=== PATIENT | female | born 1955 | race Caucasian/White ===

== ENCOUNTER 2022-10-24 10:00 | Emergency (ER) | payer MEDICARE, BC, SELFPAY ==
--- NOTE | 2022-10-24 10:08 | ED.EYEPROB ---
HPI - Eye Problem General Chief complaint: Eye Problems Stated complaint: Eye Problem Source: patient and RN notes reviewed History of Present Illness HPI Narrative: 67 yo F presents to urgent care with complaints of bilateral eye drainage and irritation. Pt states this started on Sunday when she started to stay at her son's house. Pt states her son went on vacation and she was staying there to watch his dogs. Pt denies any past hx of dog allergy but does report she laid on his couch and his dogs are very hairy. Pt reports some tenderness to her right eyelid. Pt denies any visual disturbance. Pt states she does wear contacts but not currently due to her irritation. Pt denies any fevers, chills, or EOM pain. Denies any matting or crustiness from eyes. Related Data Home Medications Medication Instructions Recorded Confirmed atorvastatin 40 mg tablet 40 mg PO DAILY 10/24/22 10/24/22 duloxetine 30 mg capsule,delayed 30 mg PO DAILY 10/24/22 10/24/22 release pioglitazone 45 mg tablet 45 mg PO DAILY 10/24/22 10/24/22 Allergies Allergy/AdvReac Type Severity Reaction Status Date / Time No Known Allergies Allergy Mild Unverified 10/24/22 10:13 Review of Systems Review of Systems: CONSTITUTIONAL: Denies fever, chills, or sweats. EYES: Bilateral eye clear drainage and irritated, more so on right eye. ENT: Denies otalgia and sore throat CARDIOVASCULAR: Denies chest pain, palpitations, or edema. RESPIRATORY: Denies cough or dyspnea. GASTROINTESTINAL: Denies abdominal pain, nausea, vomiting, or diarrhea. GENITOURINARY: Denies dysuria or hematuria. SKIN: Denies rash or itching. MUSCULOSKELETAL: Denies back pain, joint pain, or myalgia. NEUROLOGIC: Denies headache, numbness, or weakness. Pertinent positives per HPI. [facility] Family History Family History (Updated 02/16/16 @ 10:11 by DOCTOR UNKNOWN) Father Family history of heart disease in male family member before age 55 Patient's father is in good health, Onset Age: 61 Social History Social History Smoking status: Heavy tobacco smoker Alcohol intake: never Comments At the time of my signature, I reviewed and agree with the nursing past medical, surgical, social, and family history. There is no relevant family history pertinent to the patient complaint. Exam Narrative: GENERAL: This is a well-nourished, well-developed patient, in no apparent distress. HEAD: normocephalic, atraumatic. EYES: Bilateral eyes have clear drainage and frequent tears. Right sclera is noted to be erythremic. Right upper lid and lower orbit noted to be slightly erythemic and upper lid tender to touch. Left sclera mildly erythremic. Right lower conjunctiva injected. EARS: External ears normal, auditory canals clear and without drainage, TMs normal without perforation. Hearing grossly intact. NOSE: External nose normal with no obvious nasal discharge, nares without redness, no rhinorrhea. THROAT: Mucous membranes moist, posterior pharynx clear. NECK: Neck supple, non-tender without lymphadenopathy, masses or thyromegaly. CARDIOVASCULAR: Regular rate and rhythm without murmurs, gallops, or rubs. RESPIRATORY: Clear to auscultation. Breath sounds equal bilaterally. No wheezes, rales, or rhonchi. SKIN: warm, intact with no suspicious lesions or rash, good texture and turgor. NEURO: awake, alert, and oriented to person, place and time. There were no obvious focal neurologic abnormalities. Course Course Level of Care: Express Care Visit Vital Signs Vital signs: Vital Signs Temperature 98.3 F 10/24/22 10:09 Pulse Rate 81 10/24/22 10:09 Respiratory Rate 16 10/24/22 10:09 Blood Pressure 154/63 H 10/24/22 10:09 Pulse Oximetry 98 10/24/22 10:09 Oxygen Delivery Room Air 10/24/22 10:09 Temperature 98.3 F 10/24/22 10:14 Pulse Rate 81 10/24/22 10:14 Respiratory Rate 16 10/24/22 10:14 Blood Pressure 154/63 H 10/24/22 10:14 Pulse Oximetr
[2022-10-24 10:09] VITALS: BP 154/63; PULSE 81; RESP 16; TEMP 36.8; O2SAT 98
[2022-10-24 10:14] VITALS: BP 154/63; PULSE 81; RESP 16; TEMP 36.8; O2SAT 98
== END 2022-10-24 10:30 | disposition home or self-care (01) ==
PROVIDERS: Emergency Provider Nurse Practitioner Family; PCP Internal Medicine
DX: H10.9 Unspecified conjunctivitis (principal); F17.200 Nicotine dependence, unspecified, uncomplicated; E78.00 Pure hypercholesterolemia, unspecified; E11.9 Type 2 diabetes mellitus without complications
CPT/HCPCS: 99203; G0463

== ENCOUNTER 2024-06-07 18:02 | Emergency (ER) | payer MEDICARE, BC, SELFPAY ==
[2024-06-07] VITALS (13 sets, daily range): BP systolic 183–193; BP diastolic 72–97; PULSE 64–88; RESP 12–19; TEMP 36.3; O2SAT 98–100
--- NOTE | ~2024-06-07 | CT_ITS ---
EXAMINATION: CT brain wo con DATE: 06/07/2024 18:28 INDICATION: AMS . TECHNIQUE: Computed tomography (CT) of the head was performed without intravenous contrast. The mA wa s adjusted according to patient size. Iterative reconstruction technique was employed. The dose-lengt h product was 605.33 mGy-cm. COMPARISON: None. FINDINGS: No acute intracranial hemorrhage or extra-axial fluid collection. No hydrocephalus, mass, or herniation. No acute ischemic infarct. Unremarkable dural venous sinus attenuation. No acute osseous abnormality. Bilateral mastoid fluid, the remaining aerated spaces are clear. Mild atrophy and chronic white matter change. Atherosclerotic intracranial calcification. 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 IMPRESSION: No acute intracranial process. Reviewed, dictated and finalized at location [employer]. [employer]
--- NOTE | ~2024-06-07 | XR_ITS ---
EXAMINATION: XR chest 2V Exam Date/Time: 06/07/2024 19:00 ORCHARD SPRAYER HISTORY: syncope Comparison: 10/13/2005. RESULT: Lines, tubes, and devices: None. Lungs and pleura: Clear. Cardiomediastinal silhouette: Stable. Other: No acute osseous or upper abdominal finding. IMPRESSION: No acute cardiopulmonary process. Reviewed, dictated and finalized at location K. ARD SPRAYER
--- NOTE | 2024-06-07 18:18 | ECG_ITS ---
Test Date: 2024-06-07 18:35:58 Measurements Intervals [place] Rate: 63 P: 29 AR: 160 QRS: 52 QRSD: 102 T: 77 QT: 439 QTc: 452 Interpretive Statements SINUS RHYTHM BORDERLINE T WAVE ABNORMALITY- HIGH LATERAL LEADS BASELINE ARTIFACT- I, III, AVR, AVL BORDERLINE ECG No previous ECG available for comparison Electronically Signed On 06-08-2024 08:19:38 CASHIER SUPERVISOR by Vinny Alvarado D.O.
[2024-06-07 18:21] LABS: Glucose Point of Care 199 mg/dl (65-105)
[2024-06-07 19:05] LABS: Basophils Absolute Auto 0.1 K/mm3 (0.0-0.1); Basophils Percent Auto 0.8 % (0.2-1.2); Eosinophils Absolute Auto 0.2 K/mm3 (0-0.3); Eosinophils Percent Auto 2.4 % (0-4.4); Hematocrit 33.9 % (37.0-47.0); Hemoglobin 11.5 g/dL (12.0-15.0); Immature Granulocyte Absolute 0.06 K/mm3 (0.00-0.031); Immature Granulocyte Percent A 0.7 % (0-0.5); Lymphocytes Absolute Auto 2.19 K/mm3 (0.9-3.2); Lymphocytes Percent Auto 25.1 % (18.3-44.2); Mean Corpuscular HGB Conc 33.9 g/dl (32-36); Mean Corpuscular Hemoglobin 30.7 pg (26-34); Mean Corpuscular Volume 90.4 fl (80-100); Mean Platelet Volume 10.4 fl (7.4-10.4); Monocytes Absolute Auto 0.5 K/mm3 (0.1-0.6); Monocytes Percent Auto 5.6 % (2.6-8.5); Neutrophils Absolute Auto 5.7 K/mm3 (1.3-6.7); Neutrophils Percent Auto 65.4 % (45.5-73.1); Platelet Count Result 333 k/mm3 (150-375); Red Blood Count 3.75 M/mm3 (4.2-5.4); Red Cell Distribution Width 12.4 % (11.5-14.5); White Blood Count 8.7 K/mm3 (4.5-10.0)
[2024-06-07 19:13] LABS: INR 0.9
[2024-06-07 19:14] LABS: Partial Thromboplastin Time 25.5 Seconds (22.3-36.8)
[2024-06-07 19:23] LABS: Alanine Aminotransferase 19 U/L (6-35); Albumin Level 2.7 g/dL (3.5-5.1); Alkaline Phosphatase 85 U/L (38-126); Anion Gap 6 mmol/L (4-12); Aspartate Amino Transferase 22 U/L (14-36); Bilirubin,Total 0.4 mg/dL (0.2-1.3); Blood Urea Nitrogen 39 mg/dL (7-17); Calcium 8.7 mg/dL (8.4-10.2); Carbon Dioxide 18 mmol/L (22-30); Chloride 113 mmol/L (98-107); Estimated CRCL calculation 22 ml/min; Estimated Glomerular Filt Rate 23; Glucose 191 mg/dL (65-110); Potassium 3.9 mmol/L (3.4-5.0); Sodium 137 mmol/L (137-145)
[2024-06-07 19:25] LABS: Influenza A QL RT-PCR Negative (Negative); Influenza B QL RT-PCR Negative (Negative); RSV RNA, RT-PCR Negative (Negative); SARS-CoV-2 RNA PCR Negative (Negative)
[2024-06-07 19:33] LABS: Troponin I < 0.012 ng/mL (0.000-0.034)
[2024-06-07 19:34] LABS: Add Urine Microscopic? YES; Appearance Urine Cloudy (Clear); Bacteria Urine None Seen /hpf; Bilirubin Urine Negative (Negative); Blood Urine 1+ (Negative); Color Urine Yellow (Yellow); Glucose Urine UA 2+ mg/dL (Negative); Hyaline Casts Urine Present /lpf; Ketones Urine Trace mg/dL (Negative); Leukocyte Esterase Ur Negative LEU/UL (Negative); Nitrate Urine Negative (Negative); Non Pathogenic Casts >20; Protein Urine 4+ mg/dL (Negative); Specific Grav Ur 1.032 (1.001-1.035); Squamous Epithelial Cell Urine Few /hpf (Few); Urobilinogen Urine 0.2 mg/dL (<2.0); pH Urine 5.5 (5.0-9.0)
--- OUTSIDE RECORDS SUMMARY | 2024-06-07 19:39 | XMS_ITS | Clinical Summary ---
Author Organization [facility] Medical Office Building [address] Address [address] [place] [address] Care Team Providers Care Reading Tutor Name Role Phone Kiran Kay MD Primary Care Provider + Allergies No known active allergies Medications docusate sodium (Colace) 100 mg capsuleIndicati ons:constipatio n Take 1 capsule (100 mg total) by mouth 2 (two) times a day for 14 days 28 capsule 09/21/2023 Active Active Problems Problem Noted Date Diagnosed Date S/P laparoscopic cholecystectomy 10/02/2023 Resolved Problems Problem Noted Date Diagnosed Date Resolved Date Cholecystitis with cholelithiasis 09/13/2023 10/02/2023 Surgical History Surgery Date Site/Laterality Comments SHOULDER SURGERY 1994 Left shoulder surgery OTHER SURGICAL HISTORY 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: LESI, PT OTHER SURGICAL HISTORY Hyperlipidemia: statin therapy OTHER SURGICAL HISTORY Diabetes: oral medication OTHER SURGICAL HISTORY Depression: SSRIs OTHER SURGICAL HISTORY 2006 Dysfunctional uterine bleeding (DUB): endometrial ablation NOS OTHER SURGICAL HISTORY 2002 Vocal cord polyps: throat surgery OTHER SURGICAL HISTORY 1998 tilted uterus OTHER SURGICAL HISTORY Chronic low back pain: narcotic pain medication OTHER SURGICAL HISTORY Vitamin B12 deficiency: B12 injections OTHER SURGICAL HISTORY Colonic polyps: colonoscopy every 4-5 years CHOLECYSTECTOMY 09/21/2023 W/ cholangiography Medical History Medical History Date Comments Pleurisy 1994 Pleurisy Hx Other Medical foot problems Hx Other Medical 1998 Degenerative di sc disease & bulging disk of lumbar Hyperlipidemia Hyperlipidemia Diabetes mellitus (HCC) Diabetes Depression Depression Hx Other Medical Dysfunctional u terine bleeding (DUB) Hx Other Medical Vocal cord poly ps Hx Other Medical Chronic low arie k pain Hx Other Medical Vitamin B12 def iciency Hx Other Medical Tobaccoism Hx Other Medical Colonic polyps Pleurisy 1996 pleurisy Hx Other Medical 1997 Dengerative dis c disease Hx Other Medical 2008 B12- deficiency Hx Other Medical 1994 Shoulder surger y Hx Other Medical 1998 Tilted uterus Hx Other Medical 1998 Throat surgery Cholecystitis with cholelithiasis 09/13/2023 Family History Medical History Relation Name Comments Heart disease Brother Heart disease; Hypertension Brother Hypertension; Stroke Brother Stroke; Coronary artery disease Father 2 Jose nary artery disease; Heart disease Father 2 Heart disease; Cause of : Heart disease Hypertension Father 2 Hypertension; Hypertension Mother Hypertension; Stroke Mother Stroke; Relation Name Status Comments Brother Father 1 (Age 61) Father 2 Mother Social History Tobacco Use Types Packs/Day Years Used Date Smoking Tobacco: Every Day Cigarettes Smokeless Tobacco: Never Tobacco Cessation:Ready to Q uit: Not Asked; Counseling Given: Not Answered Alcohol Use Standard Drinks/Week Comments No 0 (1 standard drink = 0.6 oz pur e alcohol) AUDIT-C Answer Date Recorded Q1: How often do you have a drink containing alcohol? Never 09/21/2023 Q2: How many drinks containi ng alcohol do you have on a typical day when you are drinking? Patient does not drink Frequency of Binge Drinking Not on file 09/04 Personal Safety Answer Date Recorded Have you ever been in or are you currently in a harmful physical or emotional relationship or is someone making you feel afraid or unsafe? 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 Gender Identity Not on file Sexual Orientation Not on file Obstetrics History Last Filed Vital Signs Vital Sign Reading Time Taken Comments Blood Pressure 146/85 10/02/2023 11:08 AM CDT Pulse 68 10/02/2023 11:08 AM CDT Temperature 36.3 ??C (97.3 ??F) 10/02/2023 11:08 AM C DT Respiratory Rate 18 09/21/2023 2:58 PM CDT Oxygen Saturation 97% 10/02/2023 11:08 AM CDT Inhaled Oxygen Concentration - - Weight 81.8 kg (180 lb 4.8 oz) 10/02/2023 11:08 AM CDT Height 170.2 cm (5' 7 ) 10/02/2023 11:08 AM CDT Body Mass Index 28.24 10/02/2023 11:08 AM CDT Plan of Treatment Health Maintenance Due Date Last Done Comments Colon Cancer Screening-Colonoscopy 1957 Depression Screening 1957 Hepatitis C Screening 1957 Osteoporosis Screening-Bone Density Scan 1957 DTaP/Tdap/Td Vaccine (1 - Tdap) 1968 Hepatitis B Screening 1975 Zoster Vaccine (1 of 2) 2007 Breast Cancer Screening-Mammogram 09/08/2014 014, 08/19/2012 Well Visit 65+ 2022 Pneumococcal vaccine 65+ (2 of 2 - PCV) 07/19/2022 07/19/2021, 11/13/2019 Covid-19 Vaccine ( season) 2024 05/30/2021, 08/06/2020, 07/18/2020 Influenza Vaccine (#1) 2024 Fall Risk Assessment 09/20/2024 09/21/2023 Procedures Procedure Name Priority Date/Time Associated Diagnosis Comments DIGITAL MAMMOGRAPHY Routine 09/08/2013 1 :09 PM CDT from Last 3 Months or Most Recently Relevant to Health Maintenance Results * DIGITAL MAMMOGRAPHY (09/08/2013 1:09 PM CDT) Anatomical Region Laterality Modality Breast Mammography 09/08/2013 1:09 PM CDT Narrative 09/08/2013 5:14 PM CDT Acc#: ??[id number] [facility] [id number] - Screening Mamm BI DATE OF EXAM: ??May ??5 2013 ??1:09PM DIAGNOSIS: ??SCREEN MAMMOGRAPHY NEC CLINICAL HISTORY: ??SCREENING RESULT: ?\ DIGITAL SCREENING MAMMOGRAM WITH CAD A digital mammographic study was performed with CAD. TECHNIQUE: ??Two view examination of each breast was obtained and compared with previous examinations of 08/19/2012 and 03/15/2011. ??CAD is utilized. FINDINGS: ??Involution since 2010. ??Essentially fatty parenchyma. ??No dominant masses, no malignant microcalcifications. IMPRESSION: ?\ CATEGORY 1-NEGATIVE MAMMOGRAM IMPRESSION OF OVERALL ASSESSMENT CATEGORY 1-NEGATIVE TECHNOLOGIST: ?? JESSICA MUNGUIATECHNDAO MEDICAL IMAGING PATIENT ACCESS: ??PW2 TRANSCRIBE DATE/TIME: ??May ??5 2013 ??3:54P RADIOLOGIST: ??AMRITA DE ANDA M.D. ??READ ON: ??May ??5 2013 ??1:17P ORDERING DR: JOSE ANTONIO DAILEY M.D. THIS DOCUMENT HAS BEEN ELECTRONICALLY SIGNED BY: ??AMRITA DE ANDA M.D. ??ON: ??May ??5 2013 ??5:14P Requesting Fax: ??[phone] Procedure Note Provider, MD Wild - 08/29/2016 Acc#: [id number] [facility] 0017 - Screening Mamm BI DATE OF EXAM: Sep 08 2013 1:09PM DIAGNOSIS: SCREEN MAMMOGRAPHY NEC CLINICAL HISTORY: SCREENING RESULT: \ DIGITAL SCREENING MAMMOGRAM WITH CAD A digital mammographic study was performed with CAD. TECHNIQUE: Two view examination of each breast was obtained and compared with previous examinations of 08/19/2012 and 03/15/2011. CAD isutilized. FINDINGS: Involution since 2010. Essentially fatty parenchyma. No dominant masses, no malignant microcalcifications. IMPRESSION: \ CATEGORY 1-NEGATIVE MAMMOGRAM IMPRESSION OF OVERALL ASSESSMENT CATEGORY 1-NEGATIVE TECHNOLOGIST: JESSICA MUNGUIATECHNOLOGIST MEDICAL IMAGING PATIENT ACCESS: PW2 TRANSCRIBE DATE/TIME: Sep 08 2013 3:54P RADIOLOGIST: AMRITA DE ANDA M.D. READ ON: Sep 08 2013 1:17P ORDERING DR: JOSE ANTONIO DAILEY M.D. THIS DOCUMENT HAS BEEN ELECTRONICALLY SIGNED BY: AMRITA DE ANDA M.D. ON: Sep 08 2013 5:14P Requesting Historical Provider MD [facility] MAMMO PROCEDURES Paz l Result from Last 3 Months or Most Recently Relevant to Health Maintenance Insurance MEDICARE BLUE ACCESS OOS BLUE ACCESS OOS MEDICARE MEDICARE Care Teams Reading Tutor Relationship Specialty Start Date End Date Kiran Kay MD [id number] [id number] PCP - General 09/30/21
--- OUTSIDE RECORDS SUMMARY | 2024-06-07 19:39 | XMS_ITS | Clinical Summary ---
Author Organization [facility] Address [address] [address] Phone Care Team Providers Care Scientific Director Name Role Phone Unavailable Primary Care Provider Unavailabl e Allergies No known active allergies Medications DULoxetine HCl (CYMBALTA PO) Active Hydrocodone-Oscar taminophen (VICODIN PO) Active HYDROcodone-oscar taminophen (NORCO) 7.5-325 MG TabletIndicatio ns:Pain Take 1 Tab by mouth every 8 hours as needed for Moderate or more severe pain. Active DULoxetine (CYMBALTA) [address] Particles Take 1 Cap by mouth daily. 30 Cap 0 Active SITagliptin (JANUVIA) 100 MG TabletIndicatio ns:Type 2 Diabetes Mellitus Take 1 Tab by mouth daily. Indications: Type 2 Diabetes 90 Tab 3 0 Active Additional Information Patient not taking.Reported on 10/17/2021 metFORMIN (GLUCOPHAGE) 1000 MG TabletIndicatio ns:Type 2 diabetes mellitus without complication, without long-term current use of insulin (HCC) Take 1 Tab by mouth 2 times daily (with meals). 180 Tab 3 0 Active Additional Information Patient not taking.Reported on 10/17/2021 atorvastatin (LIPITOR) 40 MG TabletIndicatio ns:Hyperlipidem ia Take 1 Tab by mouth daily. Indications: High Amount of Fats in the Blood 90 Tab 3 0 Active pioglitazone (ACTOS) 45 MG Tablet Take 1 Tab by mouth daily. 90 Tab 3 0 Active Rybelsus 7 MG Tablet 2 Active gabapentin (NEURONTIN) 300 MG Capsule TAKE 1 CAPSULE BY MOUTH TWICE DAILY 2 Active Active Problems Problem Noted Date Diagnosed Date Centrilobular emphysema 10/17/2021 Tobacco use disorder 10/17/2021 Pulmonary HTN 10/17/2021 Lung nodule, multiple 10/17/2021 Chronic pain syndrome 07/19/2018 Dyslipidemia 07/19/2018 Stress incontinence in female 07/19/2018 DM2 (diabetes mellitus, type 2) High cholesterol Depression Immunizations Immunization Administration Dates Next Due Pneumococcal Vaccine Adult - 23 Valent 2,11/13/2019 Family History Medical History Relation Name Comments Aneurysm Brother 1 Brain Stroke Brother 1 High Cholesterol Brother 2 Hypertension Brother 2 Skin Cancer Brother 3 Hypertension Brother 4 Heart Attack Brother 5 Hypertension Brother 5 Heart Attack Father Chronic Obstructive Pulmonary Disease Mother Emphysema Mother Hypertension Mother High Cholesterol Sister 1 Hypertension Sister 1 Hypertension Sister 2 Hypotension Sister 2 No Known Problems Sister 3 Chronic Obstructive Pulmonary Disease Sister 4 Relation Name Status Comments Brother 1 Alive Brother 2 Alive Brother 3 Alive Brother 4 Alive Brother 5 Alive Father Mother Sister 1 Alive Sister 2 Alive Sister 3 Alive Sister 4 Social History Tobacco Use Types Packs/Day Years Used Date Smoking Tobacco: Former Smokeless Tobacco: Never Tobacco Cessation:Ready to Q uit: No; Counseling Given: Yes Alcohol Use Standard Drinks/Week Comments Never 0 (1 standard drink = 0.6 oz pur e alcohol) AUDIT-C Answer Date Recorded Frequency of Alcohol Consumption Never 07/19/2018 Average Number of Drinks Not on file 019 Frequency of Binge Drinking Not on file 07/05 PHQ-2 Answer Date Recorded Total Score - Questions 1-9 8 01/2020 Sexually Active Control Partners Comments Yes Surgical Male Comments No Sex and Gender Information Value Date Recorded Sex Assigned at Not on file Legal Sex Female 8:06 PM CDT Gender Identity Not on file Sexual Orientation Not on file Occupation Industry Job Start Date Job End Date Retired Not on file Not on file Not on file Last Filed Vital Signs Vital Sign Reading Time Taken Comments Blood Pressure 136/70 10/17/2021 11:03 AM CDT Pulse 77 10/17/2021 11:03 AM CDT Temperature 36.6 ??C (97.9 ??F) 10/17/2021 1 1:03 AM CDT Respiratory Rate 16 10/17/2021 11:0 3 AM CDT Oxygen Saturation 96% 10/17/2021 11: 03 AM CDT Inhaled Oxygen Concentration - - Weight 92.5 kg (203 lb 14.4 oz) 022 11:03 AM CDT Height 169.5 cm (5' 6.75 ) 10/17/2021 1 1:03 AM CDT Body Mass Index 32.17 10/17/2021 11:03 AM CDT Plan of Treatment Health Maintenance Due Date Last Done Comments DEXA Bone Density 1957 Diabetes: Eye Exam 1957 Diabetes: Foot Exam 1957 Hepatitis C Virus (HCV) Screening 1957 TdaP Immunization 1957 Colonoscopy 2002 Colorectal Cancer Screening 2002 Cologuard 2007 Immunochemical Fecal Occult Blood 2007 Mammogram 2007 Zoster Immunization (1 of 2) 2007 Respiratory Syncytial Virus (RSV) Immunization (Adult) (1 - Risk 60-74 years 1-dose series) 2017 Diabetes: Hemoglobin A1c 05/14/2020 11/12/2019 Diabetes: Nephropathy Screening 11/11/2020 11/12/2019, 11/12/2019 Pneumococcal Immunization (5 0+ years) (2 of 2 - PCV) 07/19/2022 07/19/2021, 11/13/2019 Influenza Immunization (#1) 2024 SARS-COV-2 Immunization ( season) 2024 05/30/2021, 08/06/2020, 07/18/2020 Pneumococcal Immunization Combined Discontinued 07/19/2021, 11/13/2019 Hepatitis B Immunization Aged Out No longer eligible based on patient's age to complete this topic Meningococcal Immunization (ACWY) Aged Out No longer eligible based on patient's age to complete this topic Rotavirus Immunization Aged Out No lo nger eligible based on patient's age to complete this topic Procedures Procedure Name Priority Date/Time Associated Diagnosis Comments CMP (COMPREHENSIVE METABOLIC PANEL) Routine 11/12/2019 10:34 AM CDT Type 2 diabetes mellitus without complication, without long-term current use of insulin (HCC) HEMOGLOBIN A1C W/ ESTIMATED GLUCOSE Routine 11/12/2019 10:34 AM CDT Type 2 diabetes mellitus without complication, without long-term current use of insulin (HCC) from Last 3 Months or Most Recently Relevant to Health Maintenance Results * (ABNORMAL) HEMOGLOBIN A1C W/ ESTIMATED GLUCOSE (11/12/2019 10:34 AM CDT) HGB-A1C 12.0(H) 4.0 - 6.0 % 11/12/2019 1:40 PM CDT [facility] Est Average Glucose 297.7 mg/dL 11/12/2019 1:40 PM CDT [facility] Blood Venipuncture / Unknown 11/12/2019 10:34 AM CDT 11/12/2019 10:34 AM CDT Narrative [facility] - 11/12/2019 1:40 PM CDT HEMOGLOBIN A1C: DIABETIC PATIENTS: WELL-CONTROLLED: ?? 6.2 - 7.0 INTERMEDIATE WELL-CONTROLLED: ??7.0 - 9.0 POORLY-CONTROLLED: ??>9.0 us Ashley Dominguez MD CHEMISTRY ORDERABLES Final Result [facility] [address] [place] [address] * (ABNORMAL) CMP (COMPREHENSIVE METABOLIC PANEL) (11/12/2019 10:34 AM CDT) SODIUM 142 136 - 144 mmol/L 11/12/2019 12:59 PM CDT [facility] POTASSIUM 4.3 3.5 - 5.1 mmol/L 11/12/2019 12:59 PM CDT [facility] CHLORIDE 105 100 - 110 mmol/L 11/12/2019 12:59 PM CDT [facility] CO2, VENOUS 25 22 - 32 mmol/L 11/12/2019 12:59 PM CDT [facility] ANION GAP 16.3 8.0 - 20.0 mmol/L 11/12/2019 12:59 PM CDT [facility] GLUCOSE 329(H) 70 - 99 mg/dL 11/12/2019 12:59 PM CDT [facility] BUN 25(H) 8 - 23 mg/dL 11/12/2019 12:59 PM CDT [facility] CREATININE, BLOOD 1.06 0.60 - 1.10 mg/dL 11/12/2019 12:59 PM CDT [facility] BUN/CREATININE RATIO 24(H) 12 - 20 ratio 11/12/2019 12:59 PM CDT [facility] TOTAL PROTEIN 7.1 6.0 - 8.3 g/dL 11/12/2019 12:59 PM CDT [facility] ALBUMIN 4.4 3.5 - 5.2 g/dL 11/12/2019 12:59 PM T [facility] Comment: The colormetric methods used for the determination of Albumin may lead to falsely elevated test results in patients suffering from renal failure or insufficiency due to interference with other proteins. A/G RATIO 1.6 1.0 - 2.0 11/12/2019 12:59 PM CDT [facility] CALCIUM 9.4 8.9 - 10.3 mg/dL 11/12/2019 12:59 PM CDT [facility] T BILI 0.6 <=1.2 mg/dL 11/12/2019 12:59 PM CDT [facility] SGOT (AST) 11 <=32 U/L 11/12/2019 12:59 PM CDT [facility] SGPT (ALT) 13 <=33 U/L 11/12/2019 12:59 PM CDT [facility] ALKALINE PHOSPHATASE 104 35 - 105 U/L 11/12/2019 12:59 PM CDT [facility] GFR, EST. NONAFRICAN 53(L) >=60 11/12/2019 12:59 PM CDT [facility] GFR, EST. >60 >=60 020 12:59 PM CDT [facility] Comment: Creatinine Clearance is the preferred criteria for selecting drug dose adjustments in renally impaired patients. ??The GFR is provided as additional pertinent clinical information. GFR is reported in mL/min/1.73 sq m. Blood Venipuncture / Unknown 11/12/2019 10:34 AM CDT 11/12/2019 10:34 AM CDT Ashley Dominguez MD CHEMISTRY ORDERABLES Final Result [facility] [address] [place] [address] from Last 3 Months or Most Recently Relevant to Health Maintenance Insurance MEDICARE [facility]
--- OUTSIDE RECORDS SUMMARY | 2024-06-07 19:39 | XMS_ITS | Referral Summary ---
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 Gender Identity Not on file Sexual Orientation Not on file Last Filed Vital Signs [...] 10/02/2023 11:08 AM CDT Plan of Treatment Not on file Procedures Procedure Name Priority Date/Time Associated Diagnosis Comments DIGITAL MAMMOGRAPHY Routine 09/08/2013 1 :09 PM CDT from Last 3 Months or Most Recently Relevant to Health Maintenance Results * DIGITAL MAMMOGRAPHY (09/08/2013 1:09 PM CDT) Anatomical Region Laterality Modality Breast Mammography 09/08/2013 1:09 PM CDT Narrative 09/08/2013 5:14 PM CDT Acc#: ??[id number] [facility] 0017 - Screening Mamm BI DATE OF EXAM: ??May ??2013 ??1:09PM DIAGNOSIS: ??SCREEN MAMMOGRAPHY NEC CLINICAL HISTORY: [...] OVERALL ASSESSMENT CATEGORY 1-NEGATIVE TECHNOLOGIST: ?? 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 ??READ ON: ??May ??5 2013 ??1:17P ORDERING DR: JOSE ANTONIO DAILEY M.D. THIS DOCUMENT HAS BEEN ELECTRONICALLY SIGNED BY: ??AMRITA DE ANDA M.D. ??ON: ??May ??5 2013 ??5:14P Requesting Fax: ??[phone] Procedure Note Provider, Wild, - 08/29/2016 Acc#: [id number] [facility] 0017 - Screening Mamm BI DATE [...] IMPRESSION OF OVERALL ASSESSMENT CATEGORY 1-NEGATIVE TECHNOLOGIST: JESSCIA MUNGUIATECHNOLOGIST MEDICAL IMAGING SHELL MOLD BONDING MACHINE OPERATOR: PWPatricia TRANSCRIBE DATE/TIME: Sep 08 2013 3:54P RADIOLOGIST: AMRITA DE ANDA M.D. READ ON: Sep 08 2013 1:17P ORDERING DR: JOSE ANTONIO DAILEY M.D. THIS DOCUMENT HAS BEEN ELECTRONICALLY SIGNED BY: AMRITA DE ANDA M.D. ON: Sep 08 2013 5:14P Requesting Historical Provider IMG MAMMO PROCEDURES Paz l Result from Last 3 Months or Most Recently Relevant to Health Maintenance Insurance MEDICARE BLUE ACCESS OOS [place] ACCESS OOS MEDICARE MEDICARE Care Teams Edge Grinder Relationship Specialty Start Date End Date Kiran Kay MD [address] [address] PCP - General 09/30/21
--- OUTSIDE RECORDS SUMMARY | 2024-06-07 19:39 | XMS_ITS | Encounter Summary ---
Author Organization [facility] Address [address] [place] [address] Phone Care Team Providers Care General Education Instructor Name Role Phone Ashley Dominguez MD Primary Care Provider [phone] Kiran Kay MD Primary Care Provider [phone] Encounter Details Date Type Department Care Team (Late st Contact Info) Description 07/19/2021 Transcribe Orders [facility] Scheduling [address] [place] [id number] Kiran Kay MD [address] [address] Tobacco use (Primary Dx) Social History Tobacco Use Types Packs/Day Years Used Date Smoking Tobacco: Every Day Smokeless Tobacco: Never Alcohol Use Standard Drinks/Week Comments Never 0 [...] file Not on file Not on file documented as of this encounter Plan of Treatment Not on file documented as of this encounter Visit Diagnoses Diagnosis Tobacco use- Primary Tobacco use disorder documented in this encounter Additional Health Concerns Assessment Noted Time PHQ-9 Depression Total Score: 8 11/13/19 20 10:37 AM CDT documented as of this encounter Care Teams General Education Instructor Relationship Specialty Start Date End Date Ashley Dominguez MD [address] [place] [address] PCP - General Family Medicine 07/19/18 07/27/21 Kiran Kay MD [address] [place] [address] PCP - General Internal Medicine 07/28/21 09/12/22 documented as of this encounter
--- OUTSIDE RECORDS SUMMARY | 2024-06-07 19:40 | XMS_ITS ---
Care Plan - [facility] Created on: June 07, 2024 DANNY RAMÍREZ : 1955 Sex: Female Author Organization [facility] Address [address] [place] [address] Phone Care Team Providers Care Impress Associate Name Role Phone JIM Conway, DIONY Portillo Primary Care Provider
--- OUTSIDE RECORDS SUMMARY | 2024-06-07 19:40 | XMS_ITS ---
Author Organization [facility] Address [address] [place] [address] Phone Care Team Providers Care Fell Cutter Name Role Phone DIONY FERNANDEZ M.D. Primary Care Provider Plan of Treatment No Plan of Treatment Recorded Assessments Includes: Assessments for all patient encounters No Assessments Recorded Medical Equipment - Implanted Devices Includes: Current and historical Devices No Medical Equipment Recorded Medications Administered Includes: Administered Medications in patient's chart No Administered Medications Recorded Results Includes: Results from 06/07/2023 through 06/07/2024 No Results Recorded For Specified Dates History of Present Illness History of Present Illness not supported for this document type No History of Present Illness Recorded Social History No Social History Recorded - Smoking Status Unknown Medical History Includes: Medical History in patient's chart No Medical History Recorded Family History Includes: Family History in patient's chart No Family History Recorded Review of Systems Review of Systems not supported for this document type No Review of Systems Recorded Mental Status No Mental Status Recorded Functional Status No Functional Status Recorded Physical Exam Physical Exam not supported for this document type No Physical Exam Recorded Clinical Notes Includes: Signed Clinical Notes starting from 05/26/2022 No Clinical Notes Recorded
[2024-06-07] MEDS: SODIUM CHLORIDE 0.9% IV 1,000 ML 999 ML IV CONT (19:52)
--- NOTE | 2024-06-07 20:54 | ED.GENADULT ---
HPI - General Adult General Chief complaint: Syncope Stated complaint: Syncope Time Seen by Provider: 06/07/24 19:16 History of Present Illness HPI narrative: Patient is a 69-year-old female presents emergency department with chief complaint of near-syncope. Patient reports that she was at [facility] got lightheaded felt as though she was going to pass out the patient reports that she has had pressure in her ears for some time and reports that she has had a lot of wax in her ears as well the patient states that she has history of diabetes but has not been on medications Related Data Home Medications ?Medication ?Instructions ?Recorded ?Confirmed ?Last Taken ?Type atorvastatin 40 mg tablet 40 mg PO DAILY 10/24/22 10/24/22 Unknown History duloxetine 30 mg capsule,delayed 30 mg PO DAILY 10/24/22 10/24/22 Unknown History release pioglitazone 45 mg tablet 45 mg PO DAILY 10/24/22 10/24/22 Unknown History Allergies Allergy/AdvReac Type Severity Reaction Status Date / Time No Known Allergies Allergy Mild Unverified 10/24/22 10:13 Review of Systems Review of Systems: A 10 system review of systems was completed on the patient and is negative except for what is stated in the HPI. Nursing and ancillary documentation was reviewed. [facility] Family History Family History Father Family history of heart disease in male family member before age 55 Patient's father is in good health, Onset Age: 61 Social History Social History Smoking status: Heavy tobacco smoker Alcohol intake: never Exam Narrative: GENERAL: Well-appearing, well-nourished, and in no acute distress. HEAD: Normocephalic, atraumatic. EYES: PERRLA and EOMI. ENT: Nares clear, no rhinorrhea or epistaxis. Mucous membranes moist. Large amount of wax in bilateral ears NECK: Supple. CHEST: Clear to auscultation. No respiratory distress. HEART: Regular rate and rhythm. No murmur heard. Normal peripheral pulses. ABDOMEN: Soft, nontender, nondistended, normal active bowel sounds. EXTREMITIES: Normal range of motion. No edema. SKIN: Warm, dry, no rash. NEURO: No focal deficits. Alert and oriented x3. PSYCH: Normal mood and affect. Course Vital Signs Vital signs: Vital Signs Temperature 36.3 C L 06/07/24 18:18 Pulse Rate 70 06/07/24 18:18 Respiratory Rate 13 06/07/24 18:18 Blood Pressure 183/87 H 06/07/24 18:18 Pulse Oximetry 100 06/07/24 18:18 Temperature 36.3 C L 06/07/24 18:19 Pulse Rate 86 06/07/24 20:13 Respiratory Rate 12 06/07/24 18:19 Blood Pressure 187/93 H 06/07/24 20:13 Pulse Oximetry 100 06/07/24 18:19 Oxygen Delivery Room Air 06/07/24 18:19 Medical Decision Making MDM Narrative Medical decision making narrative: Differential diagnosis includes electrolyte abnormality, dehydration, hyperglycemia Patient did have a large amount of cerumen in her ears was causing significant issues with hearing this was irrigated CT head showed no acute abnormality electrolytes showed a elevated creatinine After receiving IV fluids and also the cerumen impaction cleared the patient is feeling much better and would like to trial outpatient therapy Vital Signs Vital Signs: Vital Signs Temperature 36.3 C L 06/07/24 18:18 Pulse Rate 70 06/07/24 18:18 Respiratory Rate 13 06/07/24 18:18 Blood Pressure 183/87 H 06/07/24 18:18 Pulse Oximetry 100 06/07/24 18:18 Temperature 36.3 C L 06/07/24 18:19 Pulse Rate 86 06/07/24 20:13 Respiratory Rate 12 06/07/24 18:19 Blood Pressure 187/93 H 06/07/24 20:13 Pulse Oximetry 100 06/07/24 18:19 Oxygen Delivery Room Air 06/07/24 18:19 Lab Data 06/07/24 18:54 06/07/24 18:54 Labs: Lab Results 06/07/24 06/07/24 06/07/24 Range/Units 18:19 18:42 18:43 WBC (4.5-10.0) K/mm3 RBC (4.2-5.4) M/mm3 Hgb (12.0-15.0) g/dL Hct (37.0-47.0) % MCV (80-100) fl MCH (26-34) pg MCHC (32-36) g/dl RDW (11.5-14.5) % Plt Count (150-375) k/mm3 MPV (7.4-10.4) fl Immature Gran % (Auto) (0-0.5) % Neut % (Auto) (45.5-73.1) % Lymph % (Auto) (18.3-44.2) % [place]assen % (Auto) (2.6-8.5) % Eos % (Auto) (0-4.4) % Baso % (Auto) (0.2-1.2) % Lymph # (Auto) (0.9-3.2) K/mm3 [place]assen # (Auto) (0.1-0.6) K/mm3 Eos # (Auto) (0-0.3) K/mm3 Baso # (Auto) (0.0-0.1) K/mm3 Abs Immat Gran (auto) (0.00-0.031) K/mm3 Absolute Neuts (auto) (1.3-6.7) K/mm3 Absolute Nucleated RBC (0.0-0.012) K/mm3 Nucleated RBC % (0.0-0.2) % PT (11.1-14.7) Seconds INR APTT (22.3-36.8) Seconds Sodium (137-145) mmol/L Potassium (3.4-5.0) mmol/L Chloride (98-107) mmol/L Carbon Dioxide (22-30) mmol/L Anion Gap (4-12) mmol/L BUN (7-17) mg/dL Creatinine (0.7-1.0) mg/dL Estim Creat Clear Calc ml/min Estimated GFR (59 - ) Glucose (65-110) mg/dL POC Capillary Glucose 199 H (65-105) mg/dl Calcium (8.4-10.2) mg/dL Total Bilirubin (0.2-1.3) mg/dL AST (14-36) U/L ALT (6-35) U/L Alkaline Phosphatase (38-126) U/L Troponin I (0.000-0.034) ng/mL Total Protein (6.3-8.2) g/dL Albumin (3.5-5.1) g/dL Urine Color Yellow (Yellow) Urine Appearance Cloudy H (Clear) Urine pH 5.5 (5.0-9.0) Ur Specific [place] 1.032 (1.001-1.035) Urine Protein 4+ H (Negative) mg/dL Urine Glucose (UA) 2+ H (Negative) mg/dL Urine Ketones Trace H (Negative) mg/dL Ur Blood (Man) 1+ H (Negative) Urine Nitrate Negative (Negative) Urine Bilirubin Negative (Negative) Urine Urobilinogen 0.2 (<2.0) mg/dL Leukocyte Esterase Rfl Negative (Negative) KATLIN/UL Urine RBC 11-20 H (0-2) /hpf Urine WBC 6-10 H (0-3) /hpf Ur Squamous Epith Cells Few (Few) /hpf Urine Bacteria None seen /hpf Urine Casts >20 Hyaline Casts Present (None) /lpf Influenza A (RT-PCR) Negative (Negative) Influenza B (RT-PCR) Negative (Negative) RSV (RT-PCR) Negative (Negative) SARS-CoV-2 RNA (RT-PCR) Negative (Negative) 06/07/24 Range/Units 18:54 WBC 8.7 (4.5-10.0) K/mm3 RBC 3.75 L (4.2-5.4) M/mm3 Hgb 11.5 L (12.0-15.0) g/dL Hct 33.9 L (37.0-47.0) % MCV 90.4 (80-100) fl MCH 30.7 (26-34) pg MCHC 33.9 (32-36) g/dl RDW 12.4 (11.5-14.5) % Plt Count 333 (150-375) k/mm3 MPV 10.4 (7.4-10.4) fl Immature Gran % (Auto) 0.7 H (0-0.5) % Neut % (Auto) 65.4 (45.5-73.1) % Lymph % (Auto) 25.1 (18.3-44.2) % Lassen % (Auto) 5.6 (2.6-8.5) % Eos % (Auto) 2.4 (0-4.4) % Baso % (Auto) 0.8 (0.2-1.2) % Lymph # (Auto) 2.19 (0.9-3.2) K/mm3 [place] # (Auto) 0.5 (0.1-0.6) K/mm3 Eos # (Auto) 0.2 (0-0.3) K/mm3 Baso # (Auto) 0.1 (0.0-0.1) K/mm3 Abs Immat Gran (auto) 0.06 H (0.00-0.031) K/mm3 Absolute Neuts (auto) 5.7 (1.3-6.7) K/mm3 Absolute Nucleated RBC 0.000 (0.0-0.012) K/mm3 Nucleated RBC % 0.0 (0.0-0.2) % PT 13.0 (11.1-14.7) Seconds INR 0.9 APTT 25.5 (22.3-36.8) Seconds Sodium 137 (137-145) mmol/L Potassium 3.9 (3.4-5.0) mmol/L Chloride 113 H (98-107) mmol/L Carbon Dioxide 18 L (22-30) mmol/L Anion Gap 6 (4-12) mmol/L BUN 39 H (7-17) mg/dL Creatinine 2.16 H (0.7-1.0) mg/dL Estim Creat Clear Calc 22 ml/min Estimated GFR 23 L (59 - ) Glucose 191 H (65-110) mg/dL POC Capillary Glucose (65-105) mg/dl Calcium 8.7 (8.4-10.2) mg/dL Total Bilirubin 0.4 (0.2-1.3) mg/dL AST 22 (14-36) U/L ALT 19 (6-35) U/L Alkaline Phosphatase 85 (38-126) U/L Troponin I < 0.012 (0.000-0.034) ng/mL Total Protein 5.0 L (6.3-8.2) g/dL Albumin 2.7 L (3.5-5.1) g/dL Urine Color (Yellow) Urine Appearance (Clear) Urine pH (5.0-9.0) Ur Specific [place] (1.001-1.035) Urine Protein (Negative) mg/dL Urine Glucose (UA) (Negative) mg/dL Urine Ketones (Negative) mg/dL Ur Blood (Man) (Negative) Urine Nitrate (Negative) Urine Bilirubin (Negative) Urine Urobilinogen (<2.0) mg/dL Leukocyte Esterase Rfl (Negative) KATLIN/UL Urine RBC (0-2) /hpf Urine WBC (0-3) /hpf Ur Squamous Epith Cells (Few) /hpf Urine Bacteria /hpf Urine Casts Hyaline Casts (None) /lpf Influenza A (RT-PCR) (Negative) Influenza B (RT-PCR) (Negative) RSV (RT-PCR) (Negative) SARS-CoV-2 RNA (RT-PCR) (Negative) Discharge Plan Discharge Clinical Impression: Near syncope, Bilateral impacted cerumen, Renal insufficiency, Acute UTI Patient Disposition: Home, Self-Care Condition: Stable Instructions: Antibiotic Form, Urinary Tract Infection in Women (ED), Near Syncope (ED) Patient Language: Albanian Prescriptions: New cephalexin 500 mg capsule 500 mg PO Q12H 7 Days Qty: 14 0RF No Action atorvastatin 40 mg tablet 40 mg PO DAILY pioglitazone 45 mg tablet 45 mg PO DAILY duloxetine 30 mg capsule,delayed release(DR/EC) 30 mg PO DAILY cephalexin 500 mg capsule 500 mg PO Q12H 7 Days Qty: 14 0RF polymyxin B sulf-trimethoprim [Polytrim] 10,000 unit- 1 mg/mL drops 1 drp EACH EYE Q3H 10 Days Qty: 10 0RF Rx Instructions: while awake; do not exceed 6 doses in 24 hours Follow-up/Referrals: Green,Kannan Anguiano MD [Primary Care Provider] - Mayur Bey MD [Physician] -
--- NOTE | 2024-06-07 20:55 | PC.NURSE ---
this rn irrigated bilateral ears with luke warm water. this rn was able to irrigate excessive thick chunks coming out of both ears. thsi rn made edp dr. alvarado aware. pt states she is able to hear much clearer now.
== END 2024-06-07 21:45 | disposition home or self-care (01) ==
PROVIDERS: Emergency Medicine; Physician Assistant; Emergency Provider Emergency Medicine; PCP Internal Medicine
DX: R55 Syncope and collapse (principal); H61.23 Impacted cerumen, bilateral; N28.9 Disorder of kidney and ureter, unspecified; N39.0 Urinary tract infection, site not specified; Z20.822 Contact with and (suspected) exposure to COVID-19
CPT/HCPCS: 36415; 70450; 71046; 80053; 81001; 82948; 84484; 85025; 85610; 85730; 87086; 87637; 93005; 96360; 99284; J7030